=== PATIENT | male | born 1960 | race Caucasian/White ===

== ENCOUNTER 2022-05-21 07:09 | Outpatient (CLI) | payer BC, SELFPAY ==
--- NOTE | 2022-05-21 07:15 | MR_ITS ---
[address] [address] Phone:?[phone] Fax:?[phone] Referring Physician Information: Manoj Amaya M.D. [address] [address] [facility] [address] Phone:?[phone] Fax:?[phone] Patient:Lalo Vann D.O.B:?1960 Sex:?Male Phone:?[phone] [facility] MRN:?[id number] Exam Date:?05/21/2022 ? EXAM: MR PROSTATE WITHOUT AND WITH CONTRAST CLINICAL INFORMATION: Elevated PSA. COMPARISON: None. TECHNICAL INFORMATION: Examination was performed on a 1.5T magnet. High- resolution T1 axial, T2 axial, T2 FSE sagittal and T2 FSE coronal images were obtained through the prostate gland and seminal vesicles. Diffusion images were obtained in the axial plane. 15 mL of Dotarem were injected with dynamic enhanced images of the prostate gland in the axial plane. T1 fat saturation sagittal and coronal images were obtained postinjection. Images were analyzed with 3-D postprocessing online under concurrent physician supervision using a separate [employer] workstation. INTERPRETATION: The prostate gland measures 5.3 x 3.6 x 3.5 cm (TV x AP x SI) for an estimated volume of 36 cc. Transitional and central zones: There is minimal glandular and stromal hyperplasia with well encapsulated BPH nodules (PI-RADS 2). No focal CZ/TZ lesions concerning for clinically significant adenocarcinoma. Peripheral zones: Lesion 1: Location: Right apical PZ (Se 6 Im 11-14), at 8-11 o'clock position, immediately posterolateral to the prostatic urethra. Description: Homogeneous T2 hypointensity with marked diffusion restriction and washout hypervascularity measures 1.9 x 1.0 x 1.4 cm (TV x AP x SI) for an estimated volume of 2.1 cc. The lesion makes broad capsular contact without jessica transcapsular/perineural invasion. PI-RADS: 5 Pelvis: No pelvic lymphadenopathy or visible skeletal lesions. CONCLUSION: There is a very highly suspicious (PI-RADS 5) lesion in the right posterolateral apex. The lesion makes broad capsular contact without jessica transcapsular/perineural invasion. No charlie or distant metastasis identified. PI-RADS Assessment Categories: Score 1 = very low; clinically significant disease highly unlikely Score 2 = low; clinically significant disease is unlikely Score 3 = intermediate; clinically significant disease is equivocal Score 4 = high; clinically significant disease is likely Score 5 = very high; clinically significant disease is highly likely Electronically signed on 05/21/2022 3:34:00 PM by To Kim M.D.
== END 2022-05-21 07:10 | disposition home or self-care (01) ==
PROVIDERS: Referring Provider Urology; Visit Provider Urology
DX: R97.20 Elevated prostate specific antigen [PSA] (principal)
CPT/HCPCS: 72197; A9575

== ENCOUNTER 2022-07-15 08:47 | Outpatient (CLI) | payer MEDICARE, SELFPAY ==
--- NOTE | 2022-07-15 12:00 | CRLHL7_ITS ---
For Patients: As a result of the Century Cures Act, medical imaging exams and procedure reports are released immediately into your electronic medical record. You may view this report before your referring provider. If you have questions, please contact your health care provider. HISTORY: 61-year-old male. Initial staging for prostate cancer. Bilateral hip replacements. TECHNIQUE: 25.0 millicuries of [id number] was injected intravenously. Delayed images of the skeleton were obtained in the anterior and posterior projections. Additional oblique views of the pelvis were also obtained. FINDINGS: There is good uptake of activity by the skeleton. There are benign-appearing arthritic changes. There are bilateral hip replacements. There is no convincing evidence of skeletal metastasis. IMPRESSION: There is no evidence of skeletal metastasis. Dictated by Ladarius Jaimes MD @ 07/15/2022 2:31:28 PM (Electronically Signed)
== END 2022-07-15 08:48 | disposition home or self-care (01) ==
PROVIDERS: PCP Family Medicine; Visit Provider Urology
DX: C61 Malignant neoplasm of prostate (principal)
CPT/HCPCS: 78306; A9503

== ENCOUNTER 2022-07-16 17:18 | Emergency (ER) | payer OTHER, MEDICARE, SELFPAY ==
[2022-07-16] VITALS (23 sets, daily range): BP systolic 121–140; BP diastolic 90–111; PULSE 88–123; TEMP 36.4; O2SAT 93–97; BMI 30.8
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
[2022-07-16 18:03] LABS: Lactate* 0.9 mmol/L (0.5-1.9)
[2022-07-16 18:28] LABS: Basophils Absolute Auto 0.03 K/uL (0.00-0.30); Basophils Percent Auto 0.4 % (0.0-3.0); Eosinophils Percent Auto 2.4 % (0.0-7.0); Hematocrit 42.5 % (37.0-53.0); Hemoglobin* 14.7 gm/dL (13.5-17.5); Immature Granulocytes Abs Auto 0.01 K/uL (0.00-0.30); Lymphocytes Absolute Auto 2.51 K/uL (0.90-2.90); Lymphocytes Percent Auto 30.4 % (20-44); Mean Corpuscular HGB Conc 35 gm/dL (32-36); Mean Corpuscular Hemoglobin 31 pg (26-34); Mean Corpuscular Volume 90 fL (80-100); Neutrophils Absolute Auto 4.86 K/uL (1.7-7.0); Neutrophils Percent Auto 58.7 % (42.0-72.0); Platelet Count* 210 K/uL (140-440); RDW Coefficient of Variation % 12.6 % (11.5-15.5); White Blood Count* 8.27 K/uL (4.50-11.00)
[2022-07-16 18:29] LABS: Slide Review Reflex No
[2022-07-16] MEDS: 0.9 % SODIUM CHLORIDE 1000 ml 1,000 ML 500 ML IV (18:31)
[2022-07-16 18:37] LABS: Albumin* 4.6 g/dL (3.3-5.0); Chloride* 105 mmol/L (96-114); Sodium* 137 mmol/L (135-149)
--- OUTSIDE RECORDS SUMMARY | 2022-07-16 18:37 | XMS_ITS | Encounter Summary ---
:1960 Author Care Team Providers Name Role Phone Luz Ng MD Referring Provider [phone] Reason for Visit New Patient Visit; Elevated PSA or Prost ate Nodule Assessment and Plan Assessment Note 61 year old male with an elevated prost ate specific antigen 1. Raised prostate specific antigen ? MRI, prostate, w/wo contrast - please call pt to scheduled ? ciprofloxacin 500 mg tablet ? urinalysis, dipstick Discussion Note We discussed the significance of an kymberly vated serum prostate specific antigen and its utility in screening for prostate cancer. We discussed that while prostate specific antigen levels may be elevated in some men due to benign causes such as t rauma, recent sexual intercourse, urinary tract infections, or recent instrumentation, it may also be indicative of underlying prostate cancer. We discussed that a serum prostate specific antigen test a lone is not sufficient to determine if prostate cancer is present and further testing is warranted. We then discussed the available options for further evaluations. One option would be to proceed with salgado srectal ultrasound with prostate needle biopsy. This allows for sampling of the prostate in areas where cancer is likely to be found. This will allow for detectio n of underlying prostate cancer if it is present. We discussed the limitations of this including under sampling which may lead to under diagnosis. We also discussed the risks most notably bleeding to a degree enough to require intervention (1 -2.5%) and infection which may result in hospitalization (1-3%). We also discussed expected after effects of biopsy including temporary hematuria, blood per rectu m, and hematospermia which are considere d normal after this procedure. A second option we discussed would be to proceed first with an MRI of the prostate. This would allow for detection of underlying lesions of the prostate which are suspicious for cancer. This information could then be utilized for ultrasound-M RI fusion biopsies which may result in improved detection of underlying prostate cancer and also facilitate alf surveillance for men in which low risk prostate cancers are identified. We then discussed the role of adjunctive testing in the form (4k score, iso-PSA, or ExoDx) to help better inform risk profile. While this does not tell a man whether he has prostate cancer this may be h elpful in making a decision about speedy bowers to proceed with a prostate biopsy. Given his fairly significant elevation, I encouraged him to proceed with MRI and biopsy. If would like to proceed. I will call him with his MRI results and we will determine if there are targets to necessitate a Uronav biopsy or if we will simply do a standard 12 core biopsy. Patient educational handouts: No information available. Plan of Care Patient Instructions INSTRUCTIONS FOR PROSTATE ULTRASOUND AN D / OR PROSTATE BIOPSY You have been scheduled for a transrecta l ultrasound of the prostate to be done by Dr. Manoj Amaya. This procedure will be done at the [facility] either in our [place] office near [facility] or at our [place] office . It is relatively painless and provides excellent anatomical detail of your prostate gland. The procedure involves inserting a small probe in the rectum, which t akes ultrasound pictures of your prostat e, seminal vesicles, and bladder. Please come to the procedure with a full bladder. Avoid urinating at least two hours prior to the procedure. It is not necessary to fast overnight. You may eat breakfast, and lunch the day of your procedure. There are certain medications that can i nterfere with the normal clotting of the blood. Please follow directions for medications that should be discontinued prior to procedure: ASPIRIN ? please do not take Aspirin for at least 5 days prior to your scheduled prostate biopsy, and at least 2 days after your biopsy. PLAVIX / CLOPIDOGREL and ELIQUIS/APIXABA N ? Patients who take these medications should check with their ordering provider about holding these medications prior to procedure. We recommend if you a re on Plavix or Eliquis and if your Card iologist or ordering provider agrees, you should discontinue taking this medication for 7 days prior to the prostate biopsy. Most patients may resume it [address] the biopsy provided there is no seri ous bleeding. OTHER BLOOD THINNERS ? COUMADIN/WARFARIN , or XARELTO ? please discontinue these medications 5 days before the biopsy, and resume 2 days following the biopsy provided there is no serious bleeding. In order to clean out the rectum of any retained stool, you must give yourself a Fleet Enema two hours prior to the scheduled ultrasound. A Fleet Enema can be purchased over- the-counter without a presc ription, at any pharmacy. Please follow the instructions on the label to administer the enema. A prostate biopsy is often performed at the time of your prostate ultrasound. This is done to rule out the possibility of prostate cancer. The biopsy is done under ultrasonic guidance using a tiny needl e that transverses the wall of the rectu m and goes directly into the prostate. Before the biopsy is performed, Dr. Amaay will use the ultrasonic probe to inject a local anesthetic to decrease the sensati on of pain in the prostate. Next, a trig libia-activated biopsy needle is used to take approximately 12 samples of the prostate tissue. Most patients will experience a little discomfort with the passage of this needle, but the pain is usually no t severe due to the fact there are very few nerve fibers in this part of your anatomy. An antibiotic will be prescribed prior t o your scheduled prostate ultrasound and biopsy. This antibiotic is called Ciprofloxacin. Take this one out before your biopsy. These instructions will also be wr itten on the prescription when picked up from your pharmacy. Most patients experience very little inocencio n following the prostate biopsy. You can expect to have a little blood in the urine, or in the stool for up to two weeks after the biopsy. You may also experience a low-grade temperature (fever) that ev ening. If you are sexually active, you may notice blood in the semen for several weeks. Please make sure to drink plenty of flui ds (water) after the procedure. Most patients are able to return to work the next day. No heavy lifting is recommended for 48 hours. Complications follow this procedure are rare. Symptoms to watch for are shaking chills with a fever, severe bleeding with the passage of large blood clots form either the rectum or penis, or difficulty urinating. If you experience any of these symptoms contact our office at [phone]. The prostate biopsy specimens are sent t o pathology for microscopic analysis. The final reports is completed within 1-2 business days. You will be notified of the results by Dr. Amaya personally. Please be sure to provide a day-time telephone number. If you do not receive the results, please call [phone]. Reminders Provider Appointments Family Tumor Conference 07/26/2022 Alphonse Amaya MD 12:00PM Lab Urinalysis, Dipstick 05/18/2022 [facility] Referral None recorded. ? ? Procedures None recorded. ? ? Surgeries None recorded. ? ? Imaging MRI, Prostate, W/wo 05/18/2022 [facility] Contrast Radiology Depart ment Medications Name Start Date ? ? amlodipine 10 mg tablet ? TAKE 1 TABLET BY MOUTH ONE TIME DAILY cefazolin 1 gram solution for injection ? Take 1 mg by injection route. ciprofloxacin 500 mg tablet ? Take 1 tablet by mouth 1 hour prior to biopsy duloxetine 60 mg capsule,delayed release ? TAKE 1 CAPSULE BY MOUTH ONE TIME DAILY sotalol 120 mg tablet ? Take 1 Tablet by mouth in the morning a nd 1 Tablet in the evening NEEDS APPT FOR REFILL Medications Administered None recorded. Vitals Height Weight BMI 6 ft 5 in 260 lbs 30.8 kg/m2 Results Lab Results Date Name Specimen Result Interpretation Description Value Range Status Address ? 05/18/2022 Urinalysis, UR ? Color yellow yellow Final [place] Dipstick -[facility]: [address] ? ? UR ? Appearance clear clear Final [facility]ota -[facility]: [address] ? ? UR ? Glucose negative negative Final [place] [facility] mg/dL mg/dL [facility]: [address] ? ? UR ? Bilirubin negative negative Final [place] [facility]: [address] ? ? UR ? Ketones negative negative Final [place] [facility] mg/dL mg/dL [facility]: [address] [address], [place] ? ? UR ? Sp. [place] 1.020 1.010-1.02 Final [place] [facility] 5 [facility]: [address] ? ? UR ? pH -[facility] 6.0 5.0-8.0 Final [place] [facility]: [address] ? ? UR ? Protein negative negative Final [place] [facility] mg/dL mg/dL [facility]: [address] ? ? UR ? Urobilinogen 0.2 normal Final [place] [facility]: [address] [facility] [address], [place] ? ? UR ? Nitrites negative negative Final [place] [facility]: [address] [facility] [address], [place] ? ? UR ? Blood negative negative Final [place] [facility]: [address] [facility] [address], [place] ? ? UR ? Leukocytes negative negative Final [place] [facility]: [address] [facility] [address], [place] ? ? UR ? Performed by toua T ? Final [place] [facility]: [address] [facility] [address], [place] ? ? UR ? Total Urine 30 /mL ? Final [place] Volume (mL) [facility]: [address] [facility] [address], [place] Allergies Code Code System Name Reaction Severity Onset Haldol Irregular Heart Rate ? ? Problems None recorded. Procedures Date Name Performed by ? 05/18/2022 MRI, Prostate, W/wo Contrast [facility] Radiology Department [address] [place] [address] (Work Place) Vaccine List None recorded. Social History Tobacco Smoking Status Former Smoker What is your level of alcohol consumption? None Has tobacco cessation counseling been provided? Y On what date was tobacco cessation counseling 05/18/2022 provided? What was the date of your most recent tobacco 05/18/2022 screening? What is your level of caffeine consumption? Moderate Do you or have you ever used any other forms of N tobacco or nicotine? Do you use any illicit or recreational drugs? N When did you quit smoking? 1-5yearssincelastcigarette How many years have you smoked tobacco? 30 Functional Status Unknown. Past Encounters 05/18/2022 Raised Prostate Specific Antigen Manoj Amaya MD: [address] [facility], [address], [place] [address], Ph. History of Present Illness Note: <div>This is a 61 year old male who is referred by Dr. Ng for the evaluation and management of an elevated prostate specific antigen.</div><div>
</div><div>He underwent screening prostate specific antigen.</div><div>This was noted to be elevated to 9.28 ng/mL (04/06/2022)</div><div>He has no prior history of prostate specific antigen el evations.</div><div>There is no family history of prostate cancer.</div> Review of Systems ? Comprehensive General Adult ROS Reported By: Patient Constitutional: Constitutional: no fever, no chills Eyes: Eyes: no dry eyes, no vision change, no irritation Endocrine: Endocrine: no fatigue, no in creased thirst Cardiovascular: Cardiovascular: no chest inocencio n, no palpitations Integumentary: Skin: no rashes, no change i n skin color Respiratory: Respiratory: no wheezing, no cough, no shortness of breath Gastrointestinal: Gastrointestinal: no abdomin al pain, no nausea, no vomiting, no constipation, no GERD Musculoskeletal: Musculoskeletal: no neck inocencio n, no back pain Neurologic: Neurologic: no tremor, no di zziness, no numbness, no headaches Genitourinary: Genitourinary: no incontinen ce, no difficulty urinating ENMT: Ears: no ear pain. Mouth/Thr oat: no sore throat Allergic/Immunologic: Allergy/Immunologic: no itch ing, no hives Hematologic/Lymphatic: Hematologic/Lymphatic no swo llen glands, no excessive bleeding Psychiatric: Psych: no hallucinations, (n ormal) sleep disturbances: mismatch of sleep / wake bhargav edule with lifestyle needs Physical Exam ? Notes: <div>General: Well nourished . Appears in good health. No acute distress.</div><div>Neuro: A wake, alert, and oriented x 3. No focal neurologic signs. Motor function and se nsation grossly intact.</div><div>Psych: Mood is appropriate. Good judgement. </div><div>Lungs: No dyspnea.</div><div>Abdomen: Soft, not distended</div><di v>Genitalia: Normal penis. No lesions. The meatus is orthotopic in location an d located at the tip of the glans. Scrotum is healthy and well developed. The testis are down. There are no masses. There is no tenderness. The vasa are palpable bilaterally.</div><div>Digital rectal examination: 55 grams, right sided firm nodule</div><div>Extremities: Warm and well perfused. Moves all fou r extremities equally.</div><div>Skin: No edema.</div>
--- OUTSIDE RECORDS SUMMARY | 2022-07-16 18:37 | XMS_ITS | Encounter Summary ---
:1960 Author Care Team Providers Name Role Phone Luz Ng MD Referring Provider [phone] Reason for Visit Injection Assessment and Plan 1. Raised prostate specific antigen ? cefazolin 1 gram solution for injecti on Discussion Note: None recorded.Patient educational handouts: No information available. Plan of Care Reminders Provider Appointments Family Tumor Conference 07/26/2022 Alphonse Amaya MD 12:00PM Lab None recorded. ? ? Referral None recorded. ? ? Procedures None recorded. ? ? Surgeries None recorded. ? ? Imaging None recorded. ? ? Medications Name Start Date ? ? amlodipine [...] evening NEEDS APPT FOR REFILL Medications Administered Name Date ? ? cefazolin 1 gram solution for injection [id number] 3:17:08 Take 1 mg by injection route. Vitals Height Blood Pressure 6 ft 5 in 162/104 mm[Hg] Results Lab Results None recorded. Allergies Code Code System Name Reaction Severity Onset Haldol Irregular Heart Rate ? ? Problems None recorded. Procedures None recorded. Vaccine List None recorded. Social History Tobacco [...] tobacco? 30 Functional Status Unknown. Past Encounters 07/08/2022 Raised Prostate Specific Antigen; Prosta te Nodule Manoj Amaya MD: [address] [facility], [address] [phone], Ph. 07/08/2022 Raised Prostate Specific Antigen Manoj Amaya MD: [address] [facility], [facility] [address], [place] [address], Ph. History of Present Illness None recorded. Review of Systems None recorded. Physical Exam None recorded.
--- OUTSIDE RECORDS SUMMARY | 2022-07-16 18:37 | XMS_ITS ---
:1960 Author Care Team Providers Name Role Phone Annetta Lopez Primary Care Provider Unavailable Allergies None recorded. Medications Name Status Start Date Stop Date ? ? amlodipine 10 mg tablet Active ? Not avai lable Take 1 tablet by mouth once daily. duloxetine 60 mg capsule,delayed release Active ? Not available TAKE 1 CAPSULE BY MOUTH ONE TIME DAILY sotalol 120 mg tablet Active ? Not availa ble Take 1 Tablet (120 mg) by mouth every 12 hours. Problems None recorded. Procedures None recorded. Results Lab Results Date Name Specimen Result Interpretation Description Value Range Status Address ? 12/17/2021 Rapid SARS CoV Nose (nasal ? Result negative ? ? [facility] 2 Ag, QL IA, passage) [facility] Respiratory [facility] [place]: Specimen [address] Past Encounters 12/17/2021 Exposure to SARS-CoV-2 Annetta Lopez PA-C: [address], [place] [address], Ph. [phone] Social History None recorded. Vaccine List None recorded. Plan of Care Reminders Provider Appointments None recorded. ? ? Lab None recorded. ? ? Referral None recorded. ? ? Procedures None recorded. ? ? Surgeries None recorded. ? ? Imaging None recorded. ? ? Vitals None recorded.
--- OUTSIDE RECORDS SUMMARY | 2022-07-16 18:37 | XMS_ITS ---
:1960 Author Care Team Providers Name Role Phone ALICIA LUCIA MD Referring Provider [phone] Allergies Code Code System Name Reaction Severity Status Onset Haldol Irregular Heart Rate ? Active ? Medications Name Status Start Date Stop Date ? ? amlodipine 10 mg tablet Active ? Not avai lable TAKE 1 TABLET BY MOUTH ONE TIME DAILY cefazolin 1 gram solution for injection Active ? Not available Take 1 mg by injection route. ciprofloxacin 500 mg tablet Active ? Not available Take 1 tablet by mouth 1 hour prior to biopsy duloxetine 60 mg capsule,delayed release Active ? Not available TAKE 1 CAPSULE BY MOUTH ONE TIME DAILY sotalol 120 mg tablet Active ? Not availa ble Take 1 Tablet by mouth in the morning a nd 1 Tablet in the evening NEEDS APPT FOR REFILL Problems None recorded. Procedures Date Name Performed by ? 05/18/2022 MRI, Prostate, W/wo Contrast [facility] Radiology Department [address] [place] [address] (Work Place) 07/09/2022 NM, Bone Scan, Whole Body [facility] Radiology Department [address] [place] [address] (Work Place) Results Lab Results Date Name Specimen Result Interpretation Description Value Range Status Address ? 07/08/2022 Biopsy, Prostateuronav ? No ? ? ? [place] [facility] observation [facility] - [facility]. [facility]: [address] [address], [place] 05/18/2022 Urinalysi UR ? Color yellow yellow Final [place], -[facility]: [address] [address], [place] ? ? UR ? Appearance clear clear Final [place] -[facility]: [address] [facility] [address], [place] ? ? UR ? Glucose negative negative Final [place] [facility] mg/dL mg/dL [facility]: [address] [facility] [address], [place] ? ? UR ? Bilirubin negative negative Final [place] [facility]: [address] [address], [place] ? ? UR ? Ketones negative negative Final [place] [facility] mg/dL mg/dL [facility]: [address] [address], [place] ? ? UR ? Sp. [place] 1.020 1.010-1.0 Final [place] [facility]: [address] [address], [place] ? ? UR ? pH -[facility] 6.0 5.0-8.0 Final [place] [facility]: [address] [address], [place] ? ? UR ? Protein negative negative Final [place] [facility] mg/dL mg/dL [facility]: [address] [address], [place] ? ? UR ? Urobilinogen 0.2 normal Final [place] [facility]: [address] [address], [place] ? ? UR ? Nitrites negative negative Final [place] [facility] [address] [address], [place] ? ? UR ? Blood negative negative Final [place] [facility] [employer] [facility] -[facility]: [address] [address], [place] ? ? UR ? Leukocytes negative negative Final [place] [facility]: [address] [address], [place] ? ? UR ? Performed by jomar Garvey ? Final [place] [facility]: [address] [address], [place] ? ? UR ? Total Urine 30 /mL ? Final [place] Volume (mL) [facility]: [address] [address], [place] Past Encounters 07/08/2022 Raised Prostate Specific Antigen; Prosta te Nodule Manoj Amaya MD: [address] [place] [phone], Ph. 07/08/2022 Raised Prostate Specific Antigen Manoj Amaya MD: [address] [place] [phone], Ph. 05/18/2022 Raised Prostate Specific Antigen Manoj Amaya MD: [address] [place] [phone], Ph. Social History Tobacco Smoking Status Former Smoker Vaccine List None recorded. Plan of Care Patient Instructions INSTRUCTIONS FOR PROSTATE ULTRASOUND AN D / OR PROSTATE BIOPSY You have been scheduled for a transrecta l ultrasound of the prostate to be done by Dr. Manoj Amaya. This procedure will be done at the [facility] either in our [place] office near [facility] or at our [place] office . It is relatively painless and [...] prostate. Before the biopsy is performed, Dr. Amaya will use the ultrasonic probe to inject [...] of these symptoms contact our office at [phone]. The prostate biopsy specimens are sent t o pathology for microscopic analysis. The final reports is completed within 1-2 business days. You will be notified of the results by Dr. Amaya personally. Please be sure to provide a day-time telephone number. If you do not receive the results, please call [phone]. Reminders Provider Appointments None recorded. ? ? Lab None recorded. ? ? Referral None recorded. ? ? Procedures None recorded. ? ? Surgeries None recorded. ? ? Imaging None recorded. ? ? Vitals 07/08/2022 01:00PM LAB INJECTION Height Blood Pressure 6 ft 5 in 162/104 mm[Hg] 05/18/2022 02:55PM NEW PATIENT ELEV PSA 15 Height Weight BMI 6 ft 5 in 260 lbs 30.8 kg/m2
--- OUTSIDE RECORDS SUMMARY | 2022-07-16 18:37 | XMS_ITS | Encounter Summary ---
:1960 Author Care Team Providers Name Role Phone Luz Ng MD Referring Provider [phone] Reason for Visit [facility]roNav Prostate Biopsy Assessment and Plan Assessment Note 61 year old male with an elevated prost ate specific antigen here for Uronav prostate biopsy 1. Raised prostate specific antigen ? biopsy, prostate 2. Prostate nodule Discussion Note The patient tolerated the procedure wel l. We discussed that he can expect to have blood coating the stool for a few days, pink or reddish urine which may be normal, and rust colored ejaculate for up to one month. We discussed important warning signs suc h as fevers >100.4 which may be indicative of sepsis, worsening blood in the urine with clots and urinary retention, or worsening blood per rectum. In each oth er these circumstances he should contact the office immediately or go to the Emergency Department. He will be contacted with the results of his biopsy. If he does not receive these results within 5-7 business days he should contact our office. Patient educational handouts: No information available. Plan of Care Reminders Provider Appointments Family Tumor Conference 30 07/26/2022 Alphonse Amaya MD 12:00PM Lab Biopsy, Prostate 07/08/2022 [place] [facility] None recorded. ? ? Procedures [...] FOR REFILL Medications Administered None recorded. Vitals None recorded. Results Lab Results Date Name Specimen Result Interpretation Description Value Range Status Address ? 07/08/2022 Biopsy, Prostateuronav ? No observation ? ? ? [place] Prostate recorded. [facility] angel[facility] - Serena Aguirre b: [address] [place] [address] Allergies Code Code System Name Reaction Severity [...] Antigen; Prosta te Nodule Manoj Amaya MD: [address] [place] [address], [address] [address], Ph. 07/08/2022 Raised Prostate Specific Antigen Manoj Amaya MD: [address] [place] [address], [address] [phone], Ph. History of Present Illness Note: <div>This is a 61 year old male with an elevated prostate specific antigen here for Uronav prostate biopsy.</div><div>
</div><div>He was noted to have an elevated prostate specific antigen of 9.28 ng/mL (04/06/2022)</div><div>[facility] on 05/21/2022 which revealed a PI-RADS 5 lesion involving the right posterolateral apex without obvious extracapsular extension.</div><div>He is here for Uronav prostate biopsy.</div> Review of Systems None recorded. Physical Exam ? Notes: <div>General: Well nourished . Appears in good health. No acute distress.</div><div>Neuro: A wake, alert, and oriented x 3. No focal neurologic signs. Motor function and se nsation grossly intact.</div><div>Psych: Mood is appropriate. Good judgement. </div><div>Lungs: No dyspnea.</div><div>Abdomen: Soft, not distended</div><di v>Digital rectal examination: right sided nodule occupying more than half of the right lobe.</div><div>Extremities: Warm and well perfused. Moves all fou r extremities equally.</div><div>Skin: No edema.</div>
--- OUTSIDE RECORDS SUMMARY | 2022-07-16 18:37 | XMS_ITS | Encounter Summary ---
:1960 Author [facility] Address [address] [place] [address] Care Team Providers Name Role Phone Unavailable Primary Care Provider Unavailable Encounter Details Date Type Department Care Team Description 08/07/2001 - Hospital Encounter Heart & Vascular Lobito Negro, 08/08/2001 Center Echocardiogra sharif HARRY 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 documented in this encounter Results XCVS STRESS ECHOCARDIOGRAM (08/07/2001 11:30 AM CDT) Specimen (Source) Anatomical Collection Method Collection Time Re ceived Time Location / / Volume Laterality 08/07/2001 11:30 AM CDT Narrative HP CONVERSION - 08/07/2001 11:30 AM CDT Resting heart rate: 62 ?Resting blood pressure: 170/80 Maximum predicted heart rate: 180 ? Maximum blood pressure: 220/120 Maximum heart rate achieved: ??150 ? Rate pressure product: ??33,000 % Maximum heart rate achieved: 85% ?Exercise duration: 12:03 INDICATION FOR EXAM: Arrhythmia. This study included two-dimensional echo , pulse, continuous wave and color Doppler. MEDICATIONS: ??Atenolol, taken on the da y of the test. PROTOCOL: ??Donny-echocardiogram. SYMPTOMS: ??Fatigue; Predicted heart rat e achieved. ??Hypertensive response 220/120. ECG, REST: ??Normal ST-T segments. ECG, STRESS: ??No significant ST segment shifts noted. ECHO, REST: ??Chamber size, wall motion, and wall thickness are normal. No significant valvular abnormalities ar e seen. ??The visually estimated left ventricular ejection frac tion is 55%. ??Very difficult. ECHO, STRESS: ??All segments display adan ropriate hyperkinesis; ejection fraction increases appropriately. ??Shor t axis view technically indadequate. CONCLUSION: ??1. ??No evidence for induc ible ischemia. ? 2. ??Image quality wa s poor. Report faxed to [phone] on August 09, 2001. Lobito Negro MD PN ECHO ORDERABLES Performing Organization Address City/State/ZIP Code Phon e Number HP CONVERSION documented in this encounter Visit Diagnoses Not on filedocumented in this encounter
--- OUTSIDE RECORDS SUMMARY | 2022-07-16 18:37 | XMS_ITS | Clinical Summary ---
:1960 Author Organization [facility] [place] [address] Care Team Providers Name Role Phone Almas Larios MD Unavailable [phone] Yolanda Wallace NP Unavailable Kingsley Palma MD Primary Care Provider Allergies Active Allergy Reactions Severity Noted Date Comments Haloperidol Other - Describe In Comment Field 013 arrythmia Medications Medication Sig Dispensed Refills Start Date End Date Status MULTIVITAMIN ORAL take 1 tablet by 0 02/19/2008 Active mouth daily ASPIRIN 81 MG TAB, take 1 tablet (81 90 0 10/29/2008 Active DELAYED RELEASE mg) by oral route once daily DULoxetine (CYMBALTA) Take 1 capsule by 0 04/28/2017 Active 60 mg Delayed-release mouth once daily. capsule ibuprofen (ADVIL; Take 3-4 tablets 0 04/07/2018 Active MOTRIN) 200 mg tablet by mouth one time if needed. amLODIPine (NORVASC) Take 1 Tablet (10 90 tablet. 3 04/22/2022 Active 10 mg mg) by mouth once tabletIndications: daily. Atrial flutter, unspecified type (HC) sotaloL (BETAPACE) 120 Take 1 Tablet 180 Tablet 3 04/22/2022 Active mg tabletIndications: (120 mg) by mouth Atrial flutter, in the morning unspecified type (HC) and 1 Tablet (120 mg) in the evening. Active Problems Problem Noted Date Atypical atrial flutter 03/02/2017 Elevated blood sugar 10/29/2008 Bacterial infection of the hip 10/23/2008 Hypertension 10/23/2008 Anemia, unspecified 10/23/2008 Atrial fibrillation 02/20/2008 Encounters Date Type Specialty Care Team Description 05/21/2022 Telephone Luz Ng Lab (PSA) MD Louann 05/11/2022 Orders Only Lab, Appv Lab 05/11/2022 Travel 05/10/2022 Nurse Triage Luz Ng Lab MD Louann 05/07/2022 Telephone Kingsley Palma, Lab 04/22/2022 Office Visit Yolanda Wallace CV Electrophysi ology Est (1 LALITA Cui Year Follow Up) 04/22/2022 Nurse/Clinic Staff Cardiovas cular Diagnostic Only Testing (EKG) 04/22/2022 Travel from Last 3 Months Immunizations Name Administration Dates Next Due Influenza, IIV3 (Age 6-35 mos) 12/27/2009 Influenza, IIV4 10/01/2021 Tdap 05/10/2017 Family History Medical History Relation Name Comments Dementia Mother Heart Disease Mother Heart Disease Sister Relation Name Status Comments Father Mother Sister Social History Tobacco Use Types Packs/Day Years Used Date Former Smoker Cigarettes 0.5 20 Quit: 07/31/20 21 Smokeless Tobacco: Never Used Tobacco Cessation: Counseling Given: No Alcohol Use Standard Drinks/Week Comments No 0 (1 standard drink = 0.6 oz pure alcoho l) Sober for 12 years Alcohol Habits Answer Date Recorded How often do you have a drink containing alcohol? Not asked How many drinks containing alcohol do you have on a Not aske d typical day when you are drinking? How often do you have six or more drinks on one Not asked occasion? Comment: Sober for 12 years 04/22/2022 Sex Assigned at Date Recorded Not on file Obstetrics History Last Filed Vital Signs Vital Sign Reading Time Taken Comments Blood Pressure 102/62 04/22/2022 3:29 PM CDT Pulse 56 04/22/2022 3:29 PM CDT Temperature 36.2 ??C (97.1 ??F) 04/22/2022 3:29 PM CDT Respiratory Rate 10 04/22/2022 3:29 PM CDT Oxygen Saturation 97% 04/22/2022 3:29 PM CDT Inhaled Oxygen Concentration - - Weight 118.8 kg (262 lb) 04/22/2022 3:29 PM CDT Height 195.6 cm (6' 5.01) 04/22/2022 3:29 PM CDT Body Mass Index 31.06 04/22/2022 3:29 PM CDT Plan of Treatment Health Maintenance Due Date Last Done Comments Zoster (shingles) series for age 1008/17/2010 50+ (1 of 2) COVID-19 vaccine series (4 - 01/30/2022 10/01/2021, 021, Booster for Moderna series) 01/15/2021 Influenza for age 50-64 07/01/2022 10/01/2021 Depression screening for age 12+ 04/06/2023 04/06/2022 BMI (ht and wt on same day) for 04/22/2023 04/22/2022, 0604/2022, age 18+ 10/14/2020, Additional history exists Lipids for age 45-75 04/06/2027 04/06/2022 Tetanus booster 05/10/2027 05/10/2017 Colonoscopy through age 75 05/11/2028 05/11/2018 Tdap Completed 05/10/2017 Hepatitis C screening for age Completed 04/06/2022 18-79 Medical Devices Implanted Type Area Events Administrative Assistant Device Shelf Model / Identifier Expiration Date Ser ial / Lot [id number] - [id number] Left: Hip 09/30/20T / Implanted: Qty: 1 on 10/08/2008 at [facility] / Explanted: at [facility] (Quantity not on file) [id number] Description: UNIVERSAL ADAPTER SLEEVE C- TAPER+5MM Procedures Procedure Name Priority Date/Time Associated Diagnosis Comme nts PSA TOTAL Routine 05/11/2022 2:33 PM Elevated PSA Results f or this (DIAGNOSTIC) CDT procedure are i n the results section. EKG 12 LEAD Routine 04/22/2022 3:40 PM Atrial flutter, Result s for this CDT unspecified type procedure a re in (HC) the results section. from Last 3 Months Results (ABNORMAL) PSA TOTAL (DIAGNOSTIC) (05/11/2022 2:33 PM CDT) Analysis Performed At [facility] Time Signature PSA TOTAL 6.45 (H) <4.00 05/11/2022 TSO3 (DIAGNOSTIC) ng/mL 9:05 PM CDT [facility]ATORY[facility] TRAL LAB[facility] Specimen Anatomical Collection Method / Collection Time Recei marie Time (Source) Location / Volume Laterality Blood BLOOD SPECIMEN / Venipuncture / 05/11/2022 2:33 2021 2:36 Unknown Unknown PM CDT PM CDT Narrative [facility] - 05/11/2022 9:05 PM CDT The percentage of Free PSA can be used to enhance the differentiation of prostate cancer from benign prostatic disease in subjects whose PSA levels are between 4.00 and 10.00 ng/mL. The % Free PSA will be reported only for PSA values between 4.00 and 10.00 ng/mL. The Rodriguez Tiller Man PSA assay is a Chem iluminescent Microparticle Immunoassay(CMIA). Assay values obtained with different assay methods cannot be used interchangeably due to differences in assay method s and reagent specificity. ? Luz Ng MD CHEMISTRY Performing Organization Address City/State/ZIP Code Phon e Number [id number] [place] [id number] [facility] [facility] LABORATORY EKG 12 LEAD (04/22/2022 3:40 PM CDT) Component Value Ref Range Test Analysis Performed Pathologis t Method Time At Signature Interpretation Sinus bradycardia with occas ional Premature ventricular complexes Otherwise normal ECG Ventricular Rate 57 BPM Atrial Rate 57 BPM P-R Interval 174 ms QRS Duration 102 ms QT 448 ms QTc 436 ms P [place] 79 degrees R [place] 67 degrees T [place] 57 degrees Specimen Anatomical Collection Method Collection Time Receive d Time (Source) Location / / Volume Laterality 04/22/2022 3:40 PM 2 5:06 CDT PM CDT Yolanda Wallace S[facility] BURNER EKG ORD from Last 3 Months Insurance Payer Benefit Plan / Subscriber ID Effective Dates Phone Addre ss Type Group BLUE CROSS BLUE [employer]OSS [id number] 2018-Present [address] [place], [place] [id number] Advance Directives Latest Code Status on File Code Status Date Activated Date Inactivated Comments Full Code 03/17/2017 9:04 AM 03/17/2017 4:15 PM Full Code 04/02/2009 9:01 AM 04/02/2009 5:04 PM Full Code 10/22/2008 1:42 PM 10/29/2008 6:22 PM Full Code 10/22/2008 1:00 PM 10/22/2008 1:42 PM Full Code 10/08/2008 1:59 PM 10/11/2008 3:14 PM Care Teams Avionics Electronics Technician Relationship Specialty Start Date End Date Kingsley Palma, PCP - General Psychiatry 04/06/[address] [place], [place] [id number] Almas Larios Cardiology - EP Cardiovascular Disease 01/19/13 MD Susannah Yolanda Wallace, Nurse Practitioner Cardiology - 03/13/19 [facility] BURNER Electrophysiology [address] [facility] [address] [place] [address]
--- OUTSIDE RECORDS SUMMARY | 2022-07-16 18:37 | XMS_ITS | Encounter Summary ---
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 Recent normal stress electrocardiogram. Essential hypertensi SUBJECTIVE: Date of : 60. Chief Complaint: Health care maintenance. HPI: This 41-year- old male presents today for a complete physical exam. PAST MEDICAL HISTORY: (1) Paroxysmal atrial fibrillation with most recent episode in 07/01. Typically has about five or six episodes per year going back over the past several years. He had a negative stress echo in 07/31. No recent episodes since 07/01. (2) Essential hypertension. (3) Impaired fasting glucose found in 07/01 on routine lab work. PAST SURGICAL HISTORY: Childhood tonsillectomy. CURRENT MEDICATIONS: Atenolol 50 mg q day. Aspirin 325 mg q day. NO KNOWN DRUG ALLERGIES. FAMILY HISTORY: Father had history of hypertension. He eventually secondary to sepsis secondary to bowel obstruction. Mother generally healthy. One paternal aunt with diabetes mellitus. No known cancer. SOCIAL HISTORY: The patient is with two children. 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 Does drink about three to four beers per day. Recently quit smoking in 07/01. REVIEW OF SYSTEMS: Denies any headache, chest pain or dyspnea. Does note over the past year increased difficulties maintaining satisfactory erections. No unexplained fevers, chills, or night sweats. No new or changing moles. Does note for the past few months or so occasional very transient, sharp, stinging, and sometimes burning pain across the tops of the feet. Sometimes along the bottom of the feet. It does not bother him at night at all. It seems to occur with prolonged sitting. The rest of complete review of systems negative. OBJECTIVE: P: 76. R: 12. Initial blood pressure by nursing BP1: 190/130. When I recheck a very short time later it is BP2: 168/110. Ht: 6 feet 5 inches. Wt: 273 pounds. GENERAL: This 41-year-old male appears well. He is breathing comfortably, in no distress. Very pleasant. Appears well nourished. Sclerae clear, there is no injection. Pupils equal and reactive to light. Extraocular movements intact. Fundi benign, there is no papilledema or hemorrhage. Tympanic membranes clear without erythema. Nose clear. Oropharynx, no erythema or lesions. Neck supple, without adenopathy or thyroid nodules. No carotid bruits. Lungs clear, no rubs, rhonchi or wheeze. Normal chest excursion. Cardiovascular regular rhythm, normal heart sounds, no murmur, gallop or rub. Breasts without masses bilaterally. Abdomen soft, nontender, nondescended. No masses or hepatosplenomegaly. Bowel sounds normal, no bruits. No inguinal adenopathy. Genitourinary, testes descended bilaterally without masses. Rectal normal sphincter tone, normal mucosa, no prostate masses. Musculoskeletal, no swelling of the ankles, knees or wrists. Dorsalis pedis pulses palpable bilaterally. Neurologic, software project lead equal. Deep tendon reflex, total of four. Gait steady. Romberg negative with no clonus or drift. Monofilament testing over the feet normal. Slight diminished vibratory sense at the PIP joints bilaterally at the great toes. Normal at the ankles and the fingers. There is some hair growth noted over the lower extremities above the ankles. No erythema, ulcerations or fissures. The rest of skin exam shows no concerning lesions. ASSESSMENT: 1. Paroxysmal atrial fibrillation, currently in sinus rhythm. Recent normal stress electrocardiogram. 2. Essential hypertension, uncontrolled. 3. Impaired fasting glucose. PLAN: Continue atenolol and start Prinivil 20 mg q day. Continue aspirin. Recheck fasting blood sugar and add hemoglobin A1c this morning and AST and ALT levels for baseline. The patient is scheduled to see the cut and cover line worker next week but I also would like him to be seen in the diabetes center for supplemental education because of the impaired fasting glucose. Discussed self-testicle exam, seat belt use, and skin care in regards to the sun. Return in two to three weeks for close followup of blood pressure until we get that under better control. Will hold off on any treatment for the erectile dysfunction at this point until we get the blood pressure under control. CJM:[id number] C: DOCUMENT: [id number] PRESS OPERATOR Lobito Negro MD - 07/21/2001 12:01 AM CDT Progress Notes signed by Lobito Negro MD at 07/28/01 0951 Author: Lobito Negro MD Service: (none) Author Type: Physician Filed: 02/18/11 0058 Note Time: 07/21/01 0001 Status: Signed Customer Response Representative: Lobito Negro MD (Physician) IMPRESSION: Hyperlipidemia, Hyperglycemia : 1960. I reviewed Mr. Vann's fasting lipid and glucose results. His glucose is 121. His LDL cholesterol is 126. I will plan to talk with him by phone today hopefully and ask him to schedule a visit with the dietitian to review his diet in regards to his elevated LDL cholesterol and hyperglycemia. I will also talk with him again about vigorous exercise program. I will then ask him to see me back in six months for repeat fasting glucose and hemoglobin A1c at that point. Repeat lipid panel in one year as well. Will hold off on medication at this point but follow closely. [facility]:[id number] C: DOCUMENT: [id number] Lobito Negro MD - 07/21/2001 12:01 AM CDT Progress Notes signed by Lobito Negro MD at 08/01/01 0811 Author: Lobito Negro MD Service: (none) Author Type: Physician Filed: 09/11/01 0000 Note Time: 07/21/01 0001 Status: Signed Customer Response Representative: Lobito Negro MD (Physician) PHONE CALL: Date of : 1960. I spoke with Rip by phone this afternoon. Reviewed his lab work with him. I have asked him to schedule an appointment with the dietitian to discuss his hyperglycemia and mildly elevated LDL cholesterol. We also discussed exercise issues today as well. He is scheduled for a stress echocardiogram next week and cardiology followup then after that test is done because of his history of paroxysmal atrial fibrillation in the past. Then I have asked him to schedule a complete physical here in the next several weeks, and at that time, we will recheck blood pressure and his response to the medication started yesterday, and also plan to recheck a fasting blood sugar to confirm that result and a hemoglobin A1c. We will plan to watch the cholesterol panel closely as well. [facility]:[id number] C: DOCUMENT: [id number] Lobito Negro MD - 07/20/2001 12:01 AM CDT Progress Notes signed by Lobito Negro MD at 07/28/01 1211 Author: Lobito Negro MD Service: (none) Author Type: Physician Filed: 02/18/11 0057 Note Time: 07/20/012059 Status: Signed Customer Response Representative: Lobito Negro MD (Physician) IMPRESSION: Paroxysmal atrial fibrillation. Alcohol use. Chronic smoker, recently quit. Essential hypertension. SUBJECTIVE: Date of : 60. CHIEF COMPLAINT: ER followup. HPI: This 40-year-old male who does not have primary physician or really any primary medical followup, comes in today for followup after being seen in the [facility] Room on 07/17/01 with an episode of rapid atrial fibrillation. By patient report, he has occasional episodes of AFib going back over the past several years. He states about five or six times a year he will detect a rapid, irregular heart rate, but generally this will resolve on its own with rest after just a few minutes. This is the first time he has presented to the hospital in the recent past. The most recent episode on 07/17/01 had lasted about three hours by the time he decided to present to the ER. It was approximately another six to seven hours before he converted back to a sinus rhythm after receiving diltiazem IV and Rythmol orally. He subsequently was discharged home. Chest x-ray was normal. EKG after conversion was normal. Lab work included electrolytes and T4 level, all which were normal. Glucose was just slightly elevated, but that was a random draw. He was not discharged on any medications and is on no chronic meds. NO DRUG ALLERGIES. He has not had any stress testing done in the past. He has not had any chest pain. He really does not feel short of breath or significantly lightheaded when he has these episodes. SOCIAL HISTORY: The patient drinks about three to four beers per day. He had smoked cigarettes for about 20 years, prior to quitting about one month ago. FAMILY HISTORY: Notable for his father having several years ago secondary to sepsis. He possibly had a history of atrial fibrillation. The patient's mother is healthy. The patient has not had any regular medical care. OBJECTIVE: BP1: Initial 162/114. BP2: Repeat 164/102. P: 88 and regular. R: 12. Wt: 270 pounds. In general, this 40-year-old male appears well. Well nourished. He is breathing comfortably in no distress at this time. He is alert and appropriate and very pleasant. Sclerae are clear without icterus or injection. NECK: Supple without adenopathy or thyroid nodules. LUNGS: Clear with no rales, rhonchi, or wheeze; normal chest excursion. CARDIOVASCULAR: Regular rhythm, normal heart sounds. No murmur, gallop, or rub. ABDOMEN: Soft, nontender, nondistended, no masses or hepatosplenomegaly. Bowel sounds normal. EXTREMITIES: Appropriately warm, pink with brisk capillary refill, no pedal edema. Posterior tibial pulses are easily palpable bilaterally. Gait steady. EKG today shows normal sinus rhythm; no acute ST segment or T wave changes; normal EKG. ASSESSMENT: 1. Paroxysmal atrial fibrillation. 2. Alcohol use. 3. Chronic smoker, recently quit. 4. Essential hypertension. PLAN: Schedule stress echo and follow up with cardiology after that test is done. Start aspirin 325 mg p.o. q.d. Start atenolol 50 mg p.o. q.d. The patient was warned if he begins to feel quite lightheaded or weak after starting that medication to check his pulse and notify us. Warned of possible GI irritation and even ulceration with the aspirin. At present, schedule a repeat appointment with me in the next few weeks for recheck of his blood pressure and complete physical exam. Check fasting lipids and blood sugar today. [facility]:[id number] C: DOCUMENT: [id number] Ros Blake MD - 07/14/1998 12:01 AM CDT Progress Notes signed by Ros Blake MD at 07/30/98 1249 Author: Ros Blake MD Service: (none) Author Type: Physician Filed: 02/17/11 0622 Note Time: 07/14/98 0001 Status: Signed Customer Response Representative: Ros Blake MD (Physician) IMPRESSION: Insect bite. Cellulitis of the leg. SUBJECTIVE: Rip Vann is a 37-year-old white male who was stung he thinks by a bee in the left posterior leg on 07/02/98. Now the area is very swollen and painful. He has been using Benadryl without any relief and in fact it is getting worse. ADVERSE DRUG REACTIONS: NKDA. MEDICATIONS: Benadryl. OBJECTIVE: T: 98.6. P: 80. R: 16. BP: 160/100. He has an area of erythema involving the entire posterior left leg, from the knee to the groin. He has no inguinal lymphadenopathy. The area is swollen and very hot to the touch. The veins are quite prominent, but there is no evidence of superficial thrombophlebitis. ASSESSMENT: 1. Insect bite. 2. Cellulitis of the leg . PLAN: Keflex 500 mg, 1 t.i.d., #30. Continue with Benadryl and a cool compress to the area. srw documented in this encounter Plan of Treatment Not on filedocumented as of this encounter Procedures Procedure Name Priority Date/Time Associated Diagnosis Comme nts GLUCOSE, WHOLE Routine 09/11/2001 11:49 AM Result s for this BLOOD POCT BARK PRESS OPERATOR procedure are i n the results section. HGB A1C Routine 09/11/2001 11:49 AM Results for this BARK PRESS OPERATOR procedure are i n the results section. ALT (SGPT) Routine 09/11/2001 11:49 AM Results for this BARK PRESS OPERATOR procedure are i n the results section. AST Routine 09/11/2001 11:49 AM Results for this BARK PRESS OPERATOR procedure are i n the results section. GLUCOSE Routine 07/20/2001 10:49 AM Results for this CDT procedure are i n the results section. LIPID PROFILE= Routine 07/20/2001 10:49 AM Result s for this CHOL,TRIG,HDL,LDL CDT procedure are in the results section. documented in this encounter Results (ABNORMAL) ALT (SGPT) (09/11/2001 11:49 AM BARK PRESS OPERATOR) [facility] Method Time Signature Alanine 67 (HH) 0 - 65 HP CONVERSION Aminotransferase U/L Specimen (Source) Anatomical Collection Method Collection Time Re ceived Time Location / / Volume Laterality 09/11/2001 11:49 AM BARK PRESS OPERATOR Lobito Negro MD LAB_1 Performing Organization Address [facility] Code Phon e Number HP CONVERSION AST (09/11/2001 11:49 AM BARK PRESS OPERATOR) Patholo gist Method Time Signature Aspartate 31 0 - 45 HP CONVERSION Aminotransferase U/L Specimen (Source) Anatomical Collection Method Collection Time Re ceived Time Location / / Volume Laterality 09/11/2001 11:49 AM BARK PRESS OPERATOR Lobito Negro MD LAB_1 Performing Organization Address City/[facility]/ZIP Code Phon e Number HP CONVERSION Hgb A1c (09/11/2001 11:49 AM BARK PRESS OPERATOR) athologist Signature HGB A1C 5.6 <6.0 % HP CONVERSION Specimen (Source) Anatomical Collection Method Collection Time Re ceived Time Location / / Volume Laterality 09/11/2001 11:49 AM BARK PRESS OPERATOR Lobito Negro MD LAB_1 Performing Organization Address [facility] Phon e Number HP CONVERSION [facility] (09/11/2001 11:49 AM BARK PRESS OPERATOR) P athologist Signature Length Of Fast 18.0 8.0 - 24.0 HP CONVERSION Hours Bedside Blood 118 mg/dL HP CONVERSION Glucose Test Specimen (Source) Anatomical Collection Method Collection Time Re ceived Time Location / / Volume Laterality 09/11/2001 11:49 AM BARK PRESS OPERATOR Lobito Negro MD LAB_1 Performing Organization Address [facility] Phon e Number HP CONVERSION Lipid Profile= Chol,Trig,HDL,LDL (07/20/2001 10:49 AM CDT) Patholo gist Method Time Signature Cholesterol/HDL 3.3 No normal HP CONVERSION Ratio Screen range Triglycerides 58 0 - 199 HP CONVERSION mg/dL HDL Cholesterol 59 30 - 70 HP CONVERSION mg/dL LDL Calculated 126 66 - 129 HP CONVERSION mg/dL Cholesterol 197 125 - 199 HP CONVERSION mg/dL Specimen (Source) Anatomical Collection Method Collection Time Re ceived Time Location / / Volume Laterality 07/20/2001 10:49 AM CDT Lobito Negro MD LAB_1 Performing Organization Address City/State/ZIP Code Phon e Number HP CONVERSION (ABNORMAL) Glucose (07/20/2001 10:49 AM CDT) [facility] Time Signature Length Of Fast 12.0 8.0 - 24.0 HP CONVERSION Hours Lab Glucose 121 (HH) 60 - 109 HP CONVERSION mg/dL Specimen (Source) Anatomical Collection Method Collection Time Re ceived Time Location / / Volume Laterality 07/20/2001 10:49 AM CDT Lobito Negro MD LAB_1 Performing Organization Address City/State/[facility] Code Phon e Number HP CONVERSION documented in this encounter Visit Diagnoses Not on filedocumented in this encounter Care Teams Jigger Crown Pouncing Machine Operator Relationship Specialty Start Date End Date Lobito Negro MD PCP - General 01/31/11 [id number] [place]aff[place] [id number] documented as of this encounter
--- OUTSIDE RECORDS SUMMARY | 2022-07-16 18:37 | XMS_ITS | Clinical Summary ---
:1960 Author Organization [facility] Address [address] [address] Care Team Providers Name Role Phone Lobito Negro MD Primary Care Provider Source Comments You are receiving this document as you are listed as the primary care provider,follow-up provider, or the patient has been referred to you for consultation.This is in compliance with the Medicare and Medicaid EHR Incentive Program,which states Providers who transition their patient to another setting of careor provider of care or refers their patient to another provider of care shouldprovide summarycare record for each transition of care or referral. [employer] Allergies Active Allergy Reactions Severity Noted Date Comments Haloperidol Tachycardia Medium 06/12/2018 Medications Medication Sig Dispensed Refills Start Date End Date Status amLODIPine Take 10 mg by 0 Activ e (NORVASC) 10 MG mouth daily. tablet aspirin 81 MG Take 81 mg by 0 Ac tive tablet mouth daily. sotalol Take 120 mg by 0 Activ e (BETAPACE) 120 mouth two MG tablet times a day. DULoxetine TAKE 1 CAPSULE 30 Capsule 0 07/13/2022 Ac tive (CYMBALTA) 60 MG BY MOUTH ONE capsuleIndicatio TIME DAILY. ns: Major depressive disorder, recurrent, in remission ([facility]) DULoxetine 1 po qday. 90 Capsule 1 11/05/2021 Discon tinued (CYMBALTA) 60 MG 2 capsuleIndicatio ns: Major depressive disorder, recurrent, in remission ([facility]) DULoxetine TAKE 1 CAPSULE 7 Capsule 0 07/09/2022 Dis continued (CYMBALTA) 60 MG BY MOUTH ONE 2 (*Med change OR capsuleIndicatio TIME DAILY. s reza med OR ns: Major NEED TO reorder, n ew depressive SCHEDULE AN dose/di rections) disorder, APPT FOR recurrent, in FUTURE remission ([facility]) REFILLS! Active Problems Problem Noted Date Bereavement 04/30/2021 Major depressive disorder, recurrent, in remission Alcohol dependence in remission 06/12/2018 Hypertension 06/12/2018 Hip pain 06/12/2018 Arrhythmia 06/12/2018 Chronic pain 06/12/2018 Family History Medical History Relation Name Comments Alcohol Abuse Mother Depression Mother Bipolar Disorder Brother Narcotic drug dependency Sister Relation Name Status Comments Mother Brother Sister Social History Tobacco Use Types Packs/Day Years Used Date Smoking Tobacco: Never Smokeless Tobacco: Never Alcohol Use Standard Drinks/Week Comments No 0 (1 standard drink = 0.6 oz pure alcoho l) Sex Assigned at Date Recorded Male 11/02/2021 6:26 PM CLINICAL ASST Last Filed Vital Signs Vital Sign Reading Time Taken Comments Blood Pressure 124/85 06/12/2018 3:56 PM CDT Pulse 71 06/12/2018 3:56 PM CDT Temperature - - Respiratory Rate - - Oxygen Saturation - - Inhaled Oxygen Concentration - - Weight 130.8 kg (288 lb 6.4 oz) 06/12/2018 3:56 PM CDT Height 192 cm (6' 3.59) 06/12/2018 3:56 PM CDT Body Mass Index 35.49 06/12/2018 3:56 PM CDT Plan of Treatment Health Maintenance Due Date Last Done Comments Colon Cancer Screening Plan Due 1960 Hep C Screening (Preventive 1960 Services) Medicare Annual Wellness Visit 1960 COVID-19 Vaccine (#1) 02[birth year]15/1961 Pneumococcal (1 - PCV) 1966 HIV Screening (Preventive 1976 Services) Cholesterol 1995 Zoster/Shingles (1 of 2) 2010 Influenza (#1) 2022 12/27/2009 DTaP/Tdap/Td (2 - Tdap) 05/10/2027 05/10/2017 HepA Aged Out No longer eulogio sparks based on patient's age to complete this topic HepB Aged Out No longer eligib le based on patient's age to complete this topic Hib Aged Out No longer eligib le based on patient's age to complete this topic IPV (Polio) Aged Out No longer eligib le based on patient's age to complete this topic MCV4 Aged Out No longer eligib le based on patient's age to complete this topic Insurance Payer Benefit Plan / Subscriber ID Effective Dates Phone Addre ss Type Group BCBS BCBS MEDICARE [id number] 2018-Present [phone] Medicare ADVANTAGE Care Teams Day Worker Relationship Specialty Start Date End Date Lobito Negro MD PCP - General 01/31/11 [address] [place]affer [id number]
[2022-07-16 18:38] LABS: Potassium* 3.8 mmol/L (3.6-5.1)
[2022-07-16 18:40] LABS: Alanine Aminotransferase* 21 U/L (4-50); Alkaline Phosphatase* 80 U/L (40-150); Aspartate Amino Transferase* 33 U/L (12-35); Bilirubin Total* 0.6 mg/dL (0.1-1.5); Blood Urea Nitrogen* 15 mg/dL (7-30); Carbon Dioxide* 22 mmol/L (20-32); Creatinine* 0.7 mg/dL (0.5-1.5); Est. Creatinine Clearance* 97.76; Estimated Glomerular Filt Rate 105 ml/min; Glucose* 104 mg/dL (60-115); Total Protein* 7.5 g/dL (6.0-8.3)
[2022-07-16 18:41] LABS: Calcium* 9.2 mg/dL (8.4-10.6)
[2022-07-16] MEDS: CEFAZOLIN 2 GM in 0.9 % SODIUM CHLORIDE Mini-bag 100 ML IVPB (19:43)
--- NOTE | 2022-07-16 20:13 | ED.NURSE ---
L pinky finger cleaned with wound cleanser spray and gauze. Bacitracin applied to lacs on L pinky finger. Lacs bandaged with telfa and gauze roll. Splint applied to L pinky finger and secured with tape.
== END 2022-07-16 20:39 | disposition home or self-care (01) ==
PROVIDERS: Emergency Provider Family Medicine; PCP Family Medicine
DX: S62.607B Fracture of unspecified phalanx of left little finger, initial encounter for open fracture (principal); V43.52XA Car driver injured in collision with other type car in traffic accident, initial encounter; R00.0 Tachycardia, unspecified
CPT/HCPCS: 12001; 36415; 71045; 73140; 76604; 76705; 80053; 83605; 84484; 85025; 93005; 93308; 94761; 96365; 99284; 99291; J0690; J7030

== ENCOUNTER 2023-09-14 08:00 | Outpatient (RCR) | payer MEDICARE, SELFPAY | END 2024-01-12 23:59 | disposition home or self-care (01) | PROVIDERS: PCP Family Medicine; Visit Provider Physician Assistant | DX: N39.3 Stress incontinence (female) (male) (principal); N52.31 Erectile dysfunction following radical prostatectomy; R27.8 Other lack of coordination; R39.15 Urgency of urination; Z51.89 Encounter for other specified aftercare | CPT/HCPCS: 97110; 97140; 97162; 97535 ==